=== PATIENT | male | born 1965 | race Caucasian/White ===

== ENCOUNTER 2016-10-08 19:30 | Emergency (ER) | payer OTHER ==
[~2016-10-08] VITALS: Ht 170.2 cm; Wt 103.9 kg
[~2016-10-08 19:30] MED LIST: ACETAMINOPHEN/O1 TA2 PO; ADVAIR DISKUS 21 DSK INH; ALBUTEROL0.09 MG/A1 INH; ALPRAZOLAM2 MG PO; AMITRIPTYLINE H25 M2 PO; ATORVASTATIN CA10 MG PO; AUGMENTIN 875 M1 TAB PO; AUGMENTIN 875-1 EACH PO; BACTRIM DS TAB1 EACH PO; BIAXIN500 M1 PO; BIAXIN500 MG PO; CEFDINIR300 MG PO; ENDOCET 325 MG-1 TA1 PO; GABAPENTIN400 M2 PO; GABAPENTIN400 MG PO; LITHIUM CARBON300 M3 PO; LYRICA100 M1 PO; LYRICA200 MG PO; LYRICA75 M1 PO; METHYLPHENIDATE20 M5 PO; MOBIC15 MG PO; NEOMYCIN-POLYMY10 M1 OT; NEURONTIN400 M1 PO; NEURONTIN800 M2 PO; OLANZAPINE10 MG PO; OXYCODONE HCL15 MG PO; OXYCODONE HCL30 MG PO; OXYCODONE HYDRO10 M1 PO; OXYCODONE5 MG PO; OXYCONTIN (MONO40 MG PO; PREDNISONE 20MG20 MG PO; PROVENTIL0.09 MG/A1 INH; SYNTHROID0.137 MG PO; TESSALON PERLE100 MG PO; VENLAFAXINE HYD75 M1 PO; ZITHROMAX Z-PA250 M1 PO; ZOFRAN ODT4 M1 PO; ZOFRAN ODT4 M1 SL; ZOFRAN ODT4 MG PO; ZOFRAN4 M1 PO
--- NOTE | 2016-10-08 21:08 | ED HEADACHE COMPLAINT ---
History of Present Illness General Chief Complaint: General Adult Stated Complaint: TRIGEMINAL ATTACKS PER PT FROM COLD WEATHER Source: patient, old records Exam Limitations: no limitations Vital Signs & Intake/Output Vital Signs & Intake/Output Vital Signs Date Time Temp Pulse Resp B/P Pulse O2 O2 Flow FiO2 Ox Delivery Rate 10/08 2141 97.3 95 18 135/88 99 Room Air Room Air 10/08 2006 97.0 100 18 138/87 100 Room Air ED Intake and Output 10/09 0000 10/08 1200 Intake Total Output Total Balance Patient 229 lb Weight Allergies Coded Allergies: NSAIDS (Non-Steroidal Anti-Inflamma (Severe, ANAPHYLAXIS ANGIOEDMEA 04/30/16) venom-honey bee (bee venom (honey bee)) (Severe, ANAPHYLAXIS 04/30/16) duloxetine (Severe, MAKES CRAZY REQUIRED RESTRAINTS 04/30/16) haloperidol (Severe, MAKES ME CRAZY 04/30/16) quetiapine (From Seroquel) (Severe, SEIZURES 04/30/16) Uncoded Allergies: DUST (UNKNOWN 01/03/15) Reconcile Medications Albuterol Sulfate (Proventil Hfa) 0.09 MG/Actuation PARTH 2 PUFF INH Q4H PRN WHEEZING/SHORTNESS OF BREATH Alprazolam 2 MG TAB 1 TAB PO TID PRN ANXIETY (Reported) Amitriptyline HCl 25 MG TABLET 1 TAB PO QPM chronic pain Amoxicillin/Potassium Clav (Augmentin 875-125 Tablet) 1 EACH TABLET 1 TAB PO BID ear infection Atorvastatin Calcium (Lipitor) (Unknown Strength) TAB (Unknown Dose) PO DAILY CHOLESTEROL (Reported) FLUTICASONE/SALMETEROL (Advair 250-50 Diskus) 250 MCG-50 MCG/DOSE BLST.W.DEV 1 PUFF INH BID DUST ALLERGY (Reported) Gabapentin (Neurontin) 800 MG TABLET 1 TAB PO 4 TIMES/DAY trigeminal neuralgia Gabapentin 400 MG CAPSULE 2 CAP PO 4 TIMES/DAY SEIZURES Levothyroxine Sodium (Synthroid) (Unknown Strength) TAB (Unknown Dose) PO DAILY THYROID (Reported) [place] Carbonate ([place] Carbonate 300MG Tab.) 300 MG CAPSULE 1 CAP PO BID BIPOLAR (Reported) Neomycin/Polymyxin B Sulf/Hc ([place]xbvpzyk-[place]wer[place]pp-Sv Ear Susp) 10 ML DROPS.SUSP 4 GTT OT 4 TIMES/DAY ear infection OXYCODONE HCL (Oxycodone HCl) 30 MG TAB 1 TAB PO Q4 PAIN (Reported) OXYCODONE HCL (Oxycodone HCl) 15 MG TAB 1 TAB PO 4 TIMES/DAY PAIN (Reported) Oxycodone HCL (Oxycontin (Monograph Only)) 40 MG TAB 1 TAB PO BID PAIN ( Reported) OXYCODONE HCL/ACETAMINOPHEN (Oxycodone-Acetaminophen 10-325) 1 TAB TAB 1 TAB PO 4 TIMES/DAY PAIN (Reported) Oxycodone HCl/Acetaminophen (Percocet 5-325 MG Tablet) 5 MG-325 MG TABLET 1 TAB PO Q6H PRN PAIN Pregabalin (Lyrica) 100 MG CAPSULE 2 CAP PO BID PAIN follow up with dr. pike at [facility]. Pregabalin (Lyrica) 100 MG CAPSULE 1 CAP PO BID trigeminal neuralgia Triage Note: PT TO ED FOR PAIN MEDS, REPORTING HE WAS RECENTLY RELEASED FROM [facility] AND "NEEDS MEDS FOR MY TRIGIMENAL NEUROLOGIA AND SCIATICA BEFORE I SEE A REAL DOCTOR." Triage Nurses Notes Reviewed? yes HPI: Patient is a 50-year-old male presents complaining of pain to the right side of his face. Pain is consistent with his previous episodes of trigeminal neuralgia. Patient reports that he was incarcerated for 45 days, the climate temperature was controlled. Patient was released today in the cold weather appears to be exacerbating his trigeminal neuralgia. Pain is a sharp electrical type pain currently severe, consistent with previous episodes. Patient denies recent trauma, fevers, chills. (JOHN OSPINA) Past History Travel History Traveled to [place] past 21 day No Medical History Any Pertinent Medical History? 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 No (JOHN OSPINA) Review of Systems Review of Systems Constitutional: Denies: chills, fever. Eyes: Denies: blurred vision. Ears, Nose, Throat, Mouth: Reports: no symptoms. Respiratory: Denies: cough, short of breath. Cardiovascular: Denies: chest pain. Gastrointestinal/Abdominal: Denies: abdominal pain, nausea, vomiting. Musculoskeletal: Reports: no symptoms. Skin: Reports: no symptoms. Neurological/Psychological: Reports: headache. Hematologic/Endocrine: Denies: bruising, bleeding. Endocrine: Reports: no symptoms. Immunologic/Allergic: Reports: no symptoms. (JOHN OSPINA) Physical Exam Physical Exam General Appearance: well developed/nourished, alert, awake Head: atraumatic, normal appearance, right-sided facial tenderness. No swelling Eyes: Bilateral: normal appearance, PERRL, EOMI. Ears, Nose, Throat: normal pharynx, normal ENT inspection, hearing grossly normal Neck: normal inspection, supple, full range of motion Respiratory: normal breath sounds, chest non-tender, no respiratory distress, lungs clear Cardiovascular: regular rate/rhythm Back: normal inspection, normal range of motion Extremities: normal inspection, normal capillary refill, normal range of motion, no edema Psychiatric: awake, alert, oriented x 3 Cranial Nerves: normal hearing, normal speech, PERRL Coordination/Gait: normal gait Motor/Sensory: no motor/sensory deficits Skin: intact, normal color, warm/dry Core Measures Severe Sepsis Present: No Septic Shock Present: No (JOHN OSPINA) Progress Differential Diagnosis: trigeminal neuralgia, medication seeking, infection Plan of Care: No signs of infection. Patient appears stable for discharge with follow-up with his primary care doctor and automotive painter. (JOHN OSPINA) Departure Departure Disposition: HOME OR SELF CARE Condition: Stable Clinical Impression Primary Impression: Trigeminal neuralgia of right side of face Referrals: KAREN MONTEJO MD (PCP/Family) Additional Instructions: Follow up with your primary doctor and your automotive painter. Return to the emergency department if fevers or worsening of symptoms. Departure Forms: Customer Survey General Discharge Information Prescriptions: Current Visit Scripts Pregabalin (Lyrica) 1 CAP PO BID #20 CAP Oxycodone HCl/Acetaminophen (Percocet 5-325 MG Tablet) 1 TAB PO Q6H PRN PAIN #5 TAB (BARBARA PIERSON,JOHN) PA/GROUP LEADER SEMICONDUCTOR PROCESSING Co-Sign Statement Statement: ED Attending supervision documentation- [] I saw and evaluated the patient. I have also reviewed all the pertinent lab results and diagnostic results. I agree with the findings and the plan of care as documented in the PA's/GROUP LEADER SEMICONDUCTOR PROCESSING's documentation. [X] I have reviewed the ED Record and agree with the PA's/GROUP LEADER SEMICONDUCTOR PROCESSING's documentation. [] Additions or exceptions (if any) to the PAs/GROUP LEADER SEMICONDUCTOR PROCESSING's note and plan are summarized below: [] (PAOLO GRAHAM,DANA Knox)
[2016-10-08] MEDS ORDERED: PERCOCET 5-3251 EACH PO ×2 (21:14→21:15)
[2016-10-08] MEDS ORDERED: LYRICA100 M1 PO ×2 (21:14→21:15)
[2016-10-08 21:42] VITALS: BP 135/88
== END 2016-10-08 21:43 ==
LOC: ERH 19:30
DX: G50.0 Trigeminal neuralgia (principal)

== ENCOUNTER 2016-11-23 22:18 | Emergency (ER) | payer OTHER ==
[~2016-11-23] VITALS: Ht 167.6 cm; Wt 104.3 kg
[~2016-11-23 22:18] MED LIST changes: +PERCOCET 5-3251 EACH PO
--- NOTE | 2016-11-23 23:56 | ED HEAD/FACIAL INJ COMPLAINT ---
History of Present Illness General Chief Complaint: General Adult Stated Complaint: PER PT HAVING RIGHT SIDE FACIAL PAIN X3 DAYS Source: patient, old records Exam Limitations: no limitations Vital Signs & Intake/Output Vital Signs & Intake/Output Vital Signs Date Time Temp Pulse Resp B/P Pulse O2 O2 Flow FiO2 Ox Delivery Rate 11/24 0021 97.4 91 18 124/72 97 Room Air 11/24 0020 100 Room Air 11/23 2238 97.2 86 18 118/82 95 Room Air ED Intake and Output 11/24 0000 11/23 1200 Intake Total Output Total Balance Patient 230 lb Weight Allergies Coded Allergies: NSAIDS (Non-Steroidal Anti-Inflamma (Severe, ANAPHYLAXIS ANGIOEDMEA 04/30/16) venom-honey bee (bee venom (honey bee)) (Severe, ANAPHYLAXIS 04/30/16) duloxetine (Severe, MAKES CRAZY REQUIRED RESTRAINTS 04/30/16) haloperidol (Severe, MAKES ME CRAZY 04/30/16) quetiapine (From Seroquel) (Severe, SEIZURES 04/30/16) Uncoded Allergies: DUST (UNKNOWN 01/03/15) Reconcile Medications Albuterol Sulfate (Proventil Hfa) 0.09 MG/Actuation PARTH 2 PUFF INH Q4H PRN WHEEZING/SHORTNESS OF BREATH Alprazolam 2 MG TAB 1 TAB PO TID PRN ANXIETY (Reported) Amitriptyline HCl 25 MG TABLET 1 TAB PO QPM chronic pain Amoxicillin/Potassium Clav (Augmentin 875-125 Tablet) 1 EACH TABLET 1 TAB PO BID ear infection Atorvastatin Calcium (Lipitor) (Unknown Strength) TAB (Unknown Dose) PO DAILY CHOLESTEROL (Reported) Augmentin (Augmentin 500-125 Tablet) 500 MG-125 MG TABLET 1 TAB PO TID INFECTION FLUTICASONE/SALMETEROL (Advair 250-50 Diskus) 250 MCG-50 MCG/DOSE BLST.W.DEV 1 PUFF INH BID DUST ALLERGY (Reported) Gabapentin (Neurontin) 800 MG TABLET 1 TAB PO 4 TIMES/DAY trigeminal neuralgia Gabapentin 400 MG CAPSULE 2 CAP PO 4 TIMES/DAY SEIZURES Levothyroxine Sodium (Synthroid) (Unknown Strength) TAB (Unknown Dose) PO DAILY THYROID (Reported) [place] Carbonate ([place] Carbonate 300MG Tab.) 300 MG CAPSULE 1 CAP PO BID BIPOLAR (Reported) Neomycin/Polymyxin B Sulf/Hc (Lyghcdra-Midhnw[place]i-Kj Ear Susp) 10 ML DROPS.SUSP 4 GTT OT 4 TIMES/DAY ear infection OXYCODONE HCL (Oxycodone HCl) 30 MG TAB 1 TAB PO Q4 PAIN (Reported) OXYCODONE HCL (Oxycodone HCl) 15 MG TAB 1 TAB PO 4 TIMES/DAY PAIN (Reported) Oxycodone HCL (Oxycontin (Monograph Only)) 40 MG TAB 1 TAB PO BID PAIN ( Reported) OXYCODONE HCL/ACETAMINOPHEN (Oxycodone-Acetaminophen 10-325) 1 TAB TAB 1 TAB PO 4 TIMES/DAY PAIN (Reported) Oxycodone HCl/Acetaminophen (Percocet 5-325 MG Tablet) 5 MG-325 MG TABLET 1 TAB PO Q6H PRN PAIN Pregabalin (Lyrica) 100 MG CAPSULE 2 CAP PO BID PAIN follow up with dr. pike at [facility]. Pregabalin (Lyrica) 100 MG CAPSULE 1 CAP PO BID trigeminal neuralgia Triage Note: RECEIVED 51 YO MALE WITH HX OF TRIGEMINAL NEURALGIA C/O RIGHT FACIAL PAIN X 3 DAYS. PT ALSO C/O FEET SWELLING X ONE WEEK. NO C/O SOB OR CP Triage Nurses Notes Reviewed? yes HPI: Patient presents for evaluation of trigeminal neuralgia pain. Patient states he has a severe facial pain across the right side of the face that occurs intermittently. He states his been particularly severe over the past 3 days. He states it typically activated by exposure to the cold. He has tried Lyrica Neurontin and Advil without relief. He describes it as a severe fiery pain. In addition he is also experiencing lower extremity edema and urinary hesitancy and dysuria. He states he was in pain management but hasn't seen the friction paint machine tender in over 2 years. His primary care doctor Jonathan Ibarra MD last week but failed to mention to him the leg swelling. He states that the Lyrica typically works for the pain but occasionally he does require narcotic pain relievers. Past History Travel History Traveled to [place] past 21 day No Medical History Any Pertinent Medical History? 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 No Review of Systems Review of Systems Constitutional: Reports: no symptoms. EENTM: Reports: no symptoms. Respiratory: Reports: no symptoms. Cardiovascular: Reports: no symptoms. GI: Reports: no symptoms. Genitourinary: Reports: no symptoms. Musculoskeletal: Reports: no symptoms. Skin: Reports: no symptoms. Neurological/Psychological: Reports: no symptoms. Hematologic/Endocrine: Reports: no symptoms. Immunologic/Allergic: Reports: no symptoms. All Other Systems: Reviewed and Negative Physical Exam Physical Exam General Appearance: SEE BELOW Cranial Nerves: SEE BELOW Comments: Gen.: Well-nourished, well-developed, no acute respiratory distress. Found asleep on stretcher. Mildly disheveled. Head: Normocephalic, atraumatic. Eyes: Normal inspection bilaterally, EOMI, PERRLA Ears: Normal inspection bilaterally Nose: Normal inspection Throat/mouth : Moist mucosa Face: Sensation intact bilaterally Neck: Supple, full range of motion, no goiter Heart: Regular rate and rhythm, no murmurs rubs or gallops Lungs: Clear to auscultation bilaterally with normal air entry Chest: Nontender Back: Normal range of motion Abdomen: Soft, nontender, nondistended, normal bowel sounds Extremities: Normal range of motion grossly, equal radial pulses, bilateral 1-2+ lower extremity pitting edema without signs of cellulitis, there are mild changes consistent with stasis dermatitis. Neurologic: Cranial nerves 2 through 12 intact, speech is clear Skin: warm and dry Psychiatric: Calm, cooperative, no apparent delusions or hallucinations Progress Differential Diagnosis: TRIGEMINAL NEURALGIA Plan of Care: Orders Procedure Date/time Status URINALYSIS 11/23 2241 Active Comments: Shamar has not been to pain management in 2 years. He has not followed up with neurology either. He failed to alert his doctor to his leg edema. I do not feel comfortable prescribing him narcotic pain relievers but I will give him a one-time dose here in the emergency department. I will provide an antibiotic for his urinary signs and symptoms. At discharge patient asked for Augmentin as opposed to Macrobid. Departure Departure Disposition: HOME OR SELF CARE Condition: Stable Clinical Impression Primary Impression: Facial pain syndrome Secondary Impressions: Peripheral edema UTI (urinary tract infection) Qualifiers: Urinary tract infection type: site unspecified Hematuria presence: without hematuria Qualified Code: N39.0 - Urinary tract infection, site not specified Referrals: KAREN IBARRA MD (PCP/Family) Additional Instructions: Macrobid as prescribed for your urinary tract infection. Follow-up with your primary care physician on Saturday for a neurology and pain management referral. Your Primary care doctor should also reevaluate your facial pain and your urinary tract infection. Return if any concerns or sudden worsening. Departure Forms: Customer Survey General Discharge Information Prescriptions: Current Visit Scripts Augmentin (Augmentin 500-125 Tablet) 1 TAB PO TID #21 TAB
[2016-11-24] MEDS ORDERED: MACROBID 100 M100 MG PO (00:03)
[2016-11-24 00:21] VITALS: BP 124/72
[2016-11-24] MEDS ORDERED: AUGMENTIN 500-1 EACH PO (00:26)
== END 2016-11-24 00:19 ==
LOC: ERH 22:18
DX: G50.0 Trigeminal neuralgia (principal)

== ENCOUNTER 2016-12-11 00:49 | Emergency (ER) | payer OTHER ==
[~2016-12-11] VITALS: Ht 170.2 cm; Wt 104.3 kg
[~2016-12-11 00:49] MED LIST changes: +AUGMENTIN 500-1 EACH PO; +MACROBID 100 M100 MG PO
[2016-12-11 01:03] VITALS: BP 110/76
[2016-12-11] MEDS ORDERED: AUGMENTIN 875-1 EACH PO (01:20)
--- NOTE | 2016-12-11 01:21 | ED DYSPNEA/ASTHMA COMPLAINT ---
History of Present Illness General Chief Complaint: General Adult Stated Complaint: X COMP "NO CAR TO GET TO PMD" HURTS TO TAKE BREATH Source: patient, old records Exam Limitations: no limitations Vital Signs & Intake/Output Vital Signs & Intake/Output Vital Signs Date Time Temp Pulse Resp B/P Pulse O2 O2 Flow FiO2 Ox Delivery Rate 12/11 0126 96 Room Air 12/11 0103 110/76 12/11 0102 96.3 80 18 94 Room Air Allergies Coded Allergies: NSAIDS (Non-Steroidal Anti-Inflamma (Severe, ANAPHYLAXIS ANGIOEDMEA 04/30/16) venom-honey bee (bee venom (honey bee)) (Severe, ANAPHYLAXIS 04/30/16) duloxetine (Severe, MAKES CRAZY REQUIRED RESTRAINTS 04/30/16) haloperidol (Severe, MAKES ME CRAZY 04/30/16) quetiapine (From Seroquel) (Severe, SEIZURES 04/30/16) Uncoded Allergies: DUST (UNKNOWN 01/03/15) Reconcile Medications Albuterol Sulfate (Proventil Hfa) 0.09 MG/Actuation PARTH 2 PUFF INH Q4H PRN WHEEZING/SHORTNESS OF BREATH Alprazolam 2 MG TAB 1 TAB PO TID PRN ANXIETY (Reported) Amitriptyline HCl 25 MG TABLET 1 TAB PO QPM chronic pain Amoxicillin/Potassium Clav (Augmentin 875-125 Tablet) 875 MG-125 MG TABLET 1 TAB PO BID BRONCHITIS Atorvastatin Calcium (Lipitor) (Unknown Strength) TAB (Unknown Dose) PO DAILY CHOLESTEROL (Reported) Augmentin (Augmentin 500-125 Tablet) 500 MG-125 MG TABLET 1 TAB PO TID INFECTION FLUTICASONE/SALMETEROL (Advair 250-50 Diskus) 250 MCG-50 MCG/DOSE BLST.W.DEV 1 PUFF INH BID DUST ALLERGY (Reported) Gabapentin (Neurontin) 800 MG TABLET 1 TAB PO 4 TIMES/DAY trigeminal neuralgia Gabapentin 400 MG CAPSULE 2 CAP PO 4 TIMES/DAY SEIZURES Levothyroxine Sodium (Synthroid) (Unknown Strength) TAB (Unknown Dose) PO DAILY THYROID (Reported) [place] Carbonate ([place] Carbonate 300MG Tab.) 300 MG CAPSULE 1 CAP PO BID BIPOLAR (Reported) OXYCODONE HCL (Oxycodone HCl) 30 MG TAB 1 TAB PO Q4 PAIN (Reported) OXYCODONE HCL (Oxycodone HCl) 15 MG TAB 1 TAB PO 4 TIMES/DAY PAIN (Reported) Oxycodone HCL (Oxycontin (Monograph Only)) 40 MG TAB 1 TAB PO BID PAIN ( Reported) OXYCODONE HCL/ACETAMINOPHEN (Oxycodone-Acetaminophen 10-325) 1 TAB TAB 1 TAB PO 4 TIMES/DAY PAIN (Reported) Pregabalin (Lyrica) 100 MG CAPSULE 2 CAP PO BID PAIN follow up with dr. pike at [facility]. Pregabalin (Lyrica) 100 MG CAPSULE 1 CAP PO BID trigeminal neuralgia Triage Note: TRIAGE: PATIENT TO ER STATES "I'M HERE BECAUSE OF AN UPPER RESPIRATORY THING. EVERYTIME I TAKE A BREATH IT HURTS." +COUGH W/ GREEN PHLEM PER PATIENT. PATIENT STATES "I KNOW WHAT IT IS. IT'S BRONCHITIS. I JUST DON'T HAVE A RIDE TO MY DOCTORS OFFICE AND IF I DRIVE I WILL GET ARRESTED." Triage Nurses Notes Reviewed? yes HPI: Patient presents with a productive cough for the past 2 days. Positive chills but no fevers. Green sputum. No chest pain or chest tightness. No orthopnea or dyspnea on exertion. Patient states he gets this every year to any need to Augmentin to clear it. Patient has no other complaints. Past History Travel History Traveled to [place] past 21 day No Medical History Any Pertinent Medical History? 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 No Review of Systems Review of Systems Constitutional: Reports: no symptoms. EENTM: Reports: no symptoms. Respiratory: Reports: see HPI, cough, short of breath. Cardiovascular: Reports: no symptoms. GI: Reports: no symptoms. Genitourinary: Reports: no symptoms. Musculoskeletal: Reports: no symptoms. Skin: Reports: no symptoms. Neurological/Psychological: Reports: no symptoms. Hematologic/Endocrine: Reports: no symptoms. Immunologic/Allergic: Reports: no symptoms. All Other Systems: Reviewed and Negative Physical Exam Physical Exam General Appearance: well developed/nourished, alert, awake Head: atraumatic, normal appearance Eyes: Bilateral: PERRL, EOMI. Ears, Nose, Throat: normal pharynx, normal ENT inspection, hearing grossly normal Neck: normal inspection, supple, full range of motion Respiratory: chest non-tender, no respiratory distress, rhonchi (SCATTERED) Cardiovascular: regular rate/rhythm, normal peripheral pulses Gastrointestinal: normal bowel sounds, soft, non-tender, no organomegaly Extremities: normal inspection, normal capillary refill, normal range of motion, no edema Neurologic/Psych: no motor/sensory deficits, awake, alert, oriented x 3, normal mood/affect Skin: intact, normal color, warm/dry Lymphatic: no anterior cervical deejay Core Measures ACS in differential dx? No Severe Sepsis Present: No Septic Shock Present: No Progress Differential Diagnosis: bronchitis, COPD, pneumonia Plan of Care: Current Medications Sig/Boyd Start time Last Medication Dose Stop Time Status Admin Amoxicillin/ 500 MG ONCE ONE 12/11 129 UNVr Clavulanate Potassium 12/11 130 (Augmentin) Initial ED EKG: none Departure Departure Disposition: HOME OR SELF CARE Condition: Stable Clinical Impression Primary Impression: Acute bronchitis Referrals: KAREN MONTEJO MD (PCP/Family) Additional Instructions: TAKE AUGMENTIN PRESCRIBED RETURN FOR ANY CONCERNS Departure Forms: Customer Survey General Discharge Information Prescriptions: Current Visit Scripts Amoxicillin/Potassium Clav (Augmentin 875-125 Tablet) 1 TAB PO BID #20 TAB Critical Care Note Critical Care Note Critical Care Time: non-applicable
== END 2016-12-11 01:35 ==
LOC: ERH 00:49
DX: J20.9 Acute bronchitis, unspecified (principal); Z87.891 Personal history of nicotine dependence
CPT/HCPCS: J3490

== ENCOUNTER 2018-03-19 15:53 | Emergency (ER) | payer OTHER ==
[~2018-03-19 15:53] MED LIST changes: +AUGMENTIN600 MG/5 M PO; +HYDROXYZINE HCL50 M1 PO; +KEFLEX500 M1 PO; +PERMETHRIN60 GM TOP; +PROAIR HFA8.5 GM INH
[2018-03-19] MEDS ORDERED: PERMETHRIN60 GM TOP (16:04)
[2018-03-19] MEDS ORDERED: CEPHALEXIN250 MG/51 PO (16:04)
[2018-03-19 16:05] VITALS: BP 123/76
--- NOTE | 2018-03-19 16:05 | ED SKIN/ALLERGY COMPLAINT ---
History of Present Illness General Chief Complaint: Skin Rash/ Abcess Stated Complaint: ?SCABIES Source: patient Exam Limitations: no limitations Vital Signs & Intake/Output Vital Signs & Intake/Output Vital Signs Date Time Temp Pulse Resp B/P B/P Pulse O2 O2 Flow FiO2 Mean Ox Delivery Rate 03/19 1605 97.5 74 16 123/76 97 Room Air Allergies Coded Allergies: NSAIDS (Non-Steroidal Anti-Inflamma (Severe, ANAPHYLAXIS ANGIOEDMEA 04/30/16) venom-honey bee (bee venom (honey bee)) (Severe, ANAPHYLAXIS 04/30/16) duloxetine (Severe, MAKES CRAZY REQUIRED RESTRAINTS 04/30/16) haloperidol (Severe, MAKES ME CRAZY 04/30/16) quetiapine (From Seroquel) (Severe, SEIZURES 04/30/16) Uncoded Allergies: DUST (UNKNOWN 01/03/15) Reconcile Medications Albuterol Sulfate (Proventil Hfa) 0.09 MG/Actuation PARTH 2 PUFF INH Q4H PRN WHEEZING/SHORTNESS OF BREATH Albuterol Sulfate (Proair Hfa) 90 MCG HFA.AER.AD 2 PUF INH Q4-6 PRN PRN bronchospasm Alprazolam 2 MG TAB 1 TAB PO TID PRN ANXIETY (Reported) Amitriptyline HCl 25 MG TABLET 1 TAB PO QPM chronic pain Amoxicillin/Potassium Clav (Augmentin Es-600 Suspension) 600 MG-42.9 MG/5 ML SUSP.RECON 5 ML PO BID BRONCHITIS Amoxicillin/Potassium Clav (Augmentin 875-125 Tablet) 875 MG-125 MG TABLET 1 TAB PO BID BRONCHITIS Amoxicillin/Potassium Clav (Augmentin 875-125 Tablet) 875 MG-125 MG TABLET 1 TAB PO BID bronchitis Atorvastatin Calcium (Lipitor) (Unknown Strength) TAB (Unknown Dose) PO DAILY CHOLESTEROL (Reported) Augmentin (Augmentin 500-125 Tablet) 500 MG-125 MG TABLET 1 TAB PO TID INFECTION Cephalexin (Keflex) 500 MG CAPSULE 1 CAP PO TID CELLULITIS Cephalexin 250 MG/5 ML SUSP.RECON 10 ML PO TID RASH FLUTICASONE/SALMETEROL (Advair 250-50 Diskus) 250 MCG-50 MCG/DOSE BLST.W.DEV 1 PUFF INH BID DUST ALLERGY (Reported) Gabapentin (Neurontin) 800 MG TABLET 1 TAB PO 4 TIMES/DAY trigeminal neuralgia Gabapentin 400 MG CAPSULE 2 CAP PO 4 TIMES/DAY SEIZURES Hydroxyzine Hydrochloride (Atarax) 50 MG TAB 1 TAB PO TID PRN ITCHING Levothyroxine Sodium (Synthroid) (Unknown Strength) TAB (Unknown Dose) PO DAILY THYROID (Reported) Lindrith Carbonate (Lindrith Carbonate 300MG Tab.) 300 MG CAPSULE 1 CAP PO BID BIPOLAR (Reported) OXYCODONE HCL (Oxycodone HCl) 30 MG TAB 1 TAB PO Q4 PAIN (Reported) OXYCODONE HCL (Oxycodone HCl) 15 MG TAB 1 TAB PO 4 TIMES/DAY PAIN (Reported) Oxycodone HCL (Oxycontin (Monograph Only)) 40 MG TAB 1 TAB PO BID PAIN ( Reported) OXYCODONE HCL/ACETAMINOPHEN (Oxycodone-Acetaminophen 10-325) 1 TAB TAB 1 TAB PO 4 TIMES/DAY PAIN (Reported) Permethrin 5 % CREAM..G. 1 LANDON TOP ONCE SCABIES massage into skin from head to soles of feet one time, leave on for 8-14 hours then remove by thorough washing Permethrin 5 % CREAM..G. 1 LANDON TOP ONCE SCABIES massage into skin from head to soles of feet one time, leave on for 8-14 hours then remove by thorough washing Pregabalin (Lyrica) 100 MG CAPSULE 2 CAP PO BID PAIN follow up with dr. pike at [facility]. Pregabalin (Lyrica) 100 MG CAPSULE 1 CAP PO BID trigeminal neuralgia Triage Nurses Notes Reviewed? yes Onset: Abrupt Duration: day(s): Timing: recent history Severity: mild, moderate Location: generalized No Modifying Factors: none HPI: 52-year-old male comes into the emergency room for further evaluation of rash. Patient reports that he was diagnosed with scabies a few weeks ago. He was living at a sober house. multiple people have the rash. Rash is very itchy. Patient reports he was treated with permethrin already and symptoms had improved. Patient reports he now comes back for further evaluation of recurreent symptoms. He reports she was still living in the sober house and reports that many of the clients were not treated. (Rich Tejeda) Past History Travel History Traveled to [place] past 21 day No Medical History Any Pertinent Medical History? 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 No (Rich Tejeda) Review of Systems Review of Systems Constitutional: Reports: no symptoms. EENTM: Reports: no symptoms. Respiratory: Reports: no symptoms. Cardiovascular: Reports: no symptoms. GI: Reports: no symptoms. Genitourinary: Reports: no symptoms. Musculoskeletal: Reports: no symptoms. Skin: Reports: see HPI. Neurological/Psychological: Reports: no symptoms. Hematologic/Endocrine: Reports: no symptoms. Immunologic/Allergic: Reports: no symptoms. All Other Systems: Reviewed and Negative (Rich Tejeda) Physical Exam Physical Exam General Appearance: well developed/nourished, mild distress Head: atraumatic Eyes: Bilateral: normal appearance. Ears, Nose, Throat: normal ENT inspection, hearing grossly normal Neck: normal inspection Respiratory: no respiratory distress Back: normal inspection Extremities: normal inspection, normal range of motion, no edema Neurologic/Psych: awake, alert, oriented x 3, normal mood/affect Skin: intact Skin Problem Location: generalized Skin Problem Character: erythematous papules,skin excoriation, plaques, (Rich Tejeda) Progress Differential Diagnosis: abscess/cellulitis, allergic reaction, anaphylaxis, angioedema, contact dermatitis, scabies Plan of Care: 03/19/2018 7:59:11 PM Rashes most consistent with bug bites versus scabies. Patient treated with permethrin cream again. Patient covered with antibiotics for possible atypical staph infections. Some of the lesions are open but no purulent drainage. Likely from scratching. There is been some associated bleeding some of the plaques/lesion Patient is no longer living in the sober house. Return if any other concerns. Follow-up with metal roofing mechanic if needed. (Rich Tejeda) Departure Departure Disposition: HOME OR SELF CARE Condition: Stable Clinical Impression Primary Impression: Scabies Referrals: Patient Has No Primary Care Dr (PCP/Family) Additional Instructions: Take permethrin cream and Bactrim as prescribed. Return if any other concerns worsening symptoms. Please go over all results of today's visit with your primary care doctor. Contact your primary care doctor to let them know you were here in the emergency room. There may be nonspecific findings which may not be related to your visit today here in the emergency room but may require further evaluation and chronic monitoring by your primary care doctor. If you had a laceration today the chance of foreign body always remains. You should follow-up with your primary care doctor for recheck in 3-5 days for a wound check. If you had an x-ray done there is a chance that a fracture could have been missed on initial read and you should follow-up with your primary care doctor for repeat x-rays if symptoms persist. If your blood pressure was elevated here in the emergency room please have rechecked by [facility] primary care doctor within the next 48. If you were prescribed a narcotic here in the emergency room or any type of controlled substances you're not allowed to drive while taking this medication or operate any type of heavy machinery. Narcotics can make you feel lightheaded dizziness nausea and can cause constipation. You may need to sisal picker a stool softener. Thank you for choosing [facility] emergency room. Please return to the emergency room immediately if you have any other concerns worsening of symptoms. Departure Forms: Customer Survey General Discharge Information Prescriptions: Current Visit Scripts Cephalexin 10 ML PO TID #300 ML Permethrin 1 LANDON TOP ONCE #60 GM massage into skin from head to soles of feet one time, leave on for 8-14 hours then remove by thorough washing (Rich Tejeda) PA/COMPUTER BOOKKEEPER Co-Sign Statement Statement: ED Attending supervision documentation- [] I saw and evaluated the patient. I have also reviewed all the pertinent lab results and diagnostic results. I agree with the findings and the plan of care as documented in the PA's/COMPUTER BOOKKEEPER's documentation. [x] I have reviewed the ED Record and agree with the PA's/COMPUTER BOOKKEEPER's documentation. [] Additions or exceptions (if any) to the PAs/COMPUTER BOOKKEEPER's note and plan are summarized below: [] (Unruly Hills DO)
== END 2018-03-19 16:09 ==
LOC: ERH 15:53
DX: B86 Scabies (principal)